=== PATIENT | female | born 1985 | race Caucasian/White ===

== ENCOUNTER 2019-07-12 20:52 | Emergency (ER) | payer BC ==
--- NOTE | 2019-07-12 21:16 | EDM.PDOC ---
ED HPI GENERAL MEDICAL PROBLEM - General Chief Complaint: ENT Problem Stated Complaint: THROAT HURTS Time Seen by Provider: 07/12/19 21:01 Source of Information: Reports: Patient, RN History Limitations: Reports: No Limitations - History of Present Illness INITIAL COMMENTS - FREE TEXT/NARRATIVE: ED with c/o cold symptoms cough, congestion, sore throat past 3-4 days. Tonight , playing "bengali horn" felt more winded so wanted to be seen. No hx asthma. No nausea or vomiting. Throat Pain Score (Numeric/FACES): 4 - Related Data Allergies Allergy/AdvReac Type Severity Reaction Status Date / Time amoxicillin Allergy Rash Verified 07/12/19 21:05 codeine Allergy Stomach Verified 07/12/19 21:05 Upset morphine Allergy Stomach Verified 07/12/19 21:05 Upset Penicillins Allergy Rash Verified 07/12/19 21:05 Home Meds: Home Meds ARIPiprazole [Abilify] 10 mg PO DAILY 07/12/19 [History] busPIRone HCl [busPIRone] 30 mg PO DAILY 07/12/19 [History] ED ROS ENT - Review of Systems Review Of Systems: Comprehensive ROS is negative, except as noted in HPI. ED EXAM, ENT - Physical Exam Exam: See Below Exam Limited By: No Limitations General Appearance: Alert, Mild Distress Eye Exam: Bilateral Eye: EOMI, PERRL Ears: Normal External Exam, Normal TMs Nose: Normal Inspection, Normal Mucousa Mouth/Throat: Normal Inspection, Normal Teeth Head: Atraumatic, Normocephalic Neck: Normal Inspection, Full Range of Motion Respiratory/Chest: No Respiratory Distress, Lungs Clear, Normal Breath Sounds Cardiovascular: Normal Peripheral Pulses GI/Abdominal: Normal Bowel Sounds, Soft, No Organomegaly (Female) Exam: Normal External Exam Back: Full Range of Motion Extremities: Normal Inspection, Normal Range of Motion Neurological: Alert, Oriented, Normal Cognition Skin: Warm, Dry, Intact, Normal Color Course - Vital Signs Last Recorded V/S: Last Vital Signs Temp 98.4 F 07/12/19 21:02 Pulse 96 07/12/19 21:02 Resp 18 07/12/19 21:02 BP 111/43 L 07/12/19 21:02 Pulse Ox 100 07/12/19 21:02 - Orders/Labs/Meds Orders: Active Orders 24 hr Category Date Time Status CULTURE STREP A CONFIRMATION [RM] Stat Lab 07/12/19 20:55 Results STREP SCRN A RAPID W CULT CONF [RM] Stat Lab 07/12/19 20:55 Results Departure - Departure Time of Disposition: 22:36 Disposition: Home, Self-Care 01 Condition: Good Clinical Impression: URI (upper respiratory infection) Qualifiers: URI type: unspecified viral URI Qualified Code(s): J06.9 - Acute upper respiratory infection, unspecified - Discharge Information *PRESCRIPTION DRUG MONITORING PROGRAM REVIEWED*: No *COPY OF PRESCRIPTION DRUG MONITORING REPORT IN PATIENT CHLOE: No Instructions: Upper Respiratory Infection, Adult, [id number] Forms: ED Department Discharge Additional Instructions: supportive care alternate tylenol and ibuprofen for pain/ fever Over counter, cough and could medications per package instructions increase fluids humidification follow up if symptoms worsen Sepsis Event Note - Focused Exam Vital Signs: Vital Signs Temp Pulse Resp BP Pulse Ox 07/12/19 21:02 98.4 F 96 18 111/43 L 100 Date Exam was Performed: 07/13/19 Time Exam was Performed: 04:19 - My Orders Last 24 Hours: My Active Orders 07/12/19 20:55 CULTURE STREP A CONFIRMATION [RM] Stat STREP SCRN A RAPID W CULT CONF [RM] Stat - Assessment/Plan Last 24 Hours: My Active Orders 07/12/19 20:55 CULTURE STREP A CONFIRMATION [RM] Stat STREP SCRN A RAPID W CULT CONF [RM] Stat
== END 2019-07-12 22:44 | disposition home or self-care (01) ==
LOC: DL.ED 20:52
DX: J06.9 Acute upper respiratory infection, unspecified (principal); Z88.0 Allergy status to penicillin; Z88.5 Allergy status to narcotic agent
CPT/HCPCS: 87081; 87430; 87804; 99283

== ENCOUNTER 2020-03-16 01:18 | Emergency (ER) | payer BC ==
[2020-03-16] MEDS ORDERED: Ondansetron 4 MG/2 ML SDV IVPUSH PRN (01:30)
[2020-03-16] MEDS ORDERED: Sodium Chloride 0.9% 10 ML Syringe FLUSH PRN (01:30)
[2020-03-16] MEDS ORDERED: Sodium Chloride 0.9% 1,000 ML IV SCH (01:30)
[2020-03-16] MEDS ORDERED: GI Cocktail Oral Solution 30 ML PO ONE (01:50)
--- NOTE | 2020-03-16 01:52 | EDM.PDOC ---
ED HPI GENERAL MEDICAL PROBLEM - General Chief Complaint: Abdominal Pain Stated Complaint: ABD PAIN Time Seen by Provider: 03/16/20 01:50 Source of Information: Reports: Patient History Limitations: Reports: No Limitations - History of Present Illness INITIAL COMMENTS - FREE TEXT/NARRATIVE: onset epiG pain 11pm, only ate lunch but nothing all day. N&V no diarrhoea. Epigastric Pain Score (Numeric/FACES): 8 - Related Data Allergies Allergy/AdvReac Type Severity Reaction Status Date / Time amoxicillin Allergy Rash Verified 03/16/20 01:29 codeine Allergy Stomach Verified 03/16/20 01:29 Upset morphine Allergy Stomach Verified 03/16/20 01:29 Upset Penicillins Allergy Rash Verified 03/16/20 01:29 Home Meds: Home Meds ARIPiprazole [Abilify] 10 mg PO DAILY 07/12/19 [History] busPIRone HCl [busPIRone] 30 mg PO DAILY 07/12/19 [History] Escitalopram Oxalate 20 mg PO DAILY 03/16/20 [History] Spironolactone [Aldactone] 10 mg PO DAILY 03/16/20 [History] Past Medical History Psychiatric History: Reports: Anxiety, Depression - Past Surgical History GI Surgical History: Reports: Cholecystectomy Musculoskeletal Surgical History: Reports: Other (See Below) Other Musculoskeletal Surgeries/Procedures:: removal of Bunion bilateral feet Social & Family History - Family History Family Medical History: Noncontributory - Tobacco Use Smoking Status *Q: Never Smoker Second Hand Smoke Exposure: No - Caffeine Use Caffeine Use: Reports: None - Recreational Drug Use Recreational Drug Use: No ED ROS GENERAL - Review of Systems Review Of Systems: Comprehensive ROS is negative, except as noted in HPI. ED EXAM, GI/ABD - Physical Exam Exam: See Below Exam Limited By: No Limitations General Appearance: Alert, WD/WN, Mild Distress, Moderate Distress, Other (tearful). No: Active Emesis Ears: Hearing Grossly Normal Throat/Mouth: Normal Voice, No Airway Compromise Head: Atraumatic Neck: Non-Tender, Full Range of Motion Respiratory/Chest: No Respiratory Distress Cardiovascular: Regular Rate, Rhythm GI/Abdominal Exam: Tender, Other (epiG region). No: Guarding, Rigid, Rebound Neurological: Alert, Oriented, Normal Cognition, Normal Gait, No Motor/Sensory Deficits Psychiatric: Tearful Skin Exam: Warm, Dry, Normal Color Lymphatic: No Adenopathy Course - Vital Signs Last Recorded V/S: Last Vital Signs Temp 35.9 C L 03/16/20 01:25 Pulse 89 03/16/20 01:25 Resp 22 H 03/16/20 01:25 BP 107/66 03/16/20 01:25 Pulse Ox 97 03/16/20 01:25 - Orders/Labs/Meds Orders: Active Orders 24 hr Category Date Time Status Peripheral IV Care [RC] . DIRECTED Care 03/16/20 01:31 Active Ondansetron [Zofran] Med 03/16/20 01:30 Active 4 mg IVPUSH Q4H PRN Sodium Chloride 0.9% [Normal Saline] 1,000 ml Med 03/16/20 01:30 Active IV ASDIRECTED Sodium Chloride 0.9% [Saline Flush] Med 03/16/20 01:30 Active 10 ml FLUSH ASDIRECTED PRN Peripheral IV Insertion Adult [OM.PC] Routine Oth 03/16/20 01:30 Ordered Medication Orders Sodium Chloride (Normal Saline) 1,000 mls @ 999 mls/hr IV ASDIRECTED DONALD Last Admin: 03/16/20 01:48 Dose: 999 mls/hr Documented by: KELSEY Ondansetron HCl (Zofran) 4 mg IVPUSH Q4H PRN PRN Reason: Nausea/Vomiting Last Admin: 03/16/20 01:55 Dose: 4 mg Documented by: KELSEY Sodium Chloride (Saline Flush) 10 ml FLUSH ASDIRECTED PRN PRN Reason: Keep Vein Open Last Admin: 03/16/20 01:48 Dose: 10 ml Documented by: KELSEY Labs: Laboratory Tests 03/16/20 03/16/20 03/16/20 Range/Units 01:45 01:45 01:45 WBC 14.7 H (5.0-10.0) 10^3/uL RBC 4.69 (4.2-5.4) 10^6/uL Hgb 13.7 (12.0-16.0) g/dL Hct 40.3 (37.0-47.0) % MCV 85.9 (80-100) fL MCH 29.2 (27.0-34.0) pg MCHC 34.0 (33.0-35.0) g/dL Plt Count 226 (150-450) 10^3/uL Neut % (Auto) 82.3 H (42.2-75.2) % Lymph % (Auto) 13.4 L (20.5-50.1) % [place] % (Auto) 3.8 (2-8) % Eos % (Auto) 0.3 L (1.0-3.0) % Baso % (Auto) 0.2 (0.0-1.0) % Sodium 140 (136-145) mmol/L Potassium 3.9 (3.5-5.1) mmol/L Chloride 102 (98-107) mmol/L Carbon Dioxide 27 (21-32) mmol/L Anion Gap 14.9 H (7-13) mEq/L BUN 13 (7-18) mg/dL Creatinine 1.09 H (0.55-1.02) mg/dL Est Cr Clr Drug Dosing 67.44 mL/min Estimated GFR (MDRD) 57 BUN/Creatinine Ratio 11.9 (No establ ref range) Glucose 142 H (74-99) mg/dL Lactic Acid 2.3 H* (0.4-2.0) mmol/L Calcium 8.7 (8.5-10.1) mg/dL Total Bilirubin 0.6 (0.2-1.0) mg/dL AST 33 (15-37) U/L ALT 68 H (14-59) U/L Alkaline Phosphatase 72 (46-116) U/L Total Protein 7.7 (6.4-8.2) g/dL Albumin 3.7 (3.4-5.0) g/dL Globulin 4.0 Albumin/Globulin Ratio 0.9 Amylase 57 (25-115) U/L Lipase 71 L (73-393) U/L HCG, Qual Negative Urine Color (YELLOW) Urine Appearance (CLEAR) Urine pH (5.0-9.0) Ur Specific [place] (1.005-1.030) Urine Protein (NEGATIVE) Urine Glucose (UA) (NEGATIVE) Urine Ketones (NEGATIVE) Urine Occult Blood (NEGATIVE) Urine Nitrite (NEGATIVE) Urine Bilirubin (NEGATIVE) Urine Urobilinogen (0.2-1.0) mg/dL Ur Leukocyte Esterase (NEGATIVE) Urine RBC /HPF Urine WBC (0-5/HPF) /HPF Ur Epithelial Cells (NOT SEEN) /HPF Amorphous Sediment (NOT SEEN) /HPF Urine Bacteria (0-FEW/HPF) /HPF Urine Mucus (NOT SEEN) /LPF Urine Opiates Screen (NEGATIVE) Ur Oxycodone Screen (NEGATIVE) Urine Methadone Screen (NEGATIVE) Ur Barbiturates Screen (NEGATIVE) U Tricyclic Antidepress (NEGATIVE) Ur Phencyclidine Scrn (NEGATIVE) Ur Amphetamine Screen (NEGATIVE) U Methamphetamines Scrn (NEGATIVE) Urine MDMA Screen (NEGATIVE) U Benzodiazepines Scrn (NEGATIVE) Urine Cocaine Screen (NEGATIVE) U Marijuana (THC) Screen (NEGATIVE) 03/16/20 03/16/20 Range/Units 03:12 03:12 WBC (5.0-10.0) 10^3/uL RBC (4.2-5.4) 10^6/uL Hgb (12.0-16.0) g/dL Hct (37.0-47.0) % MCV (80-100) fL MCH (27.0-34.0) pg MCHC (33.0-35.0) g/dL Plt Count (150-450) 10^3/uL Neut % (Auto) (42.2-75.2) % Lymph % (Auto) (20.5-50.1) % [place] % (Auto) (2-8) % Eos % (Auto) (1.0-3.0) % Baso % (Auto) (0.0-1.0) % Sodium (136-145) mmol/L Potassium (3.5-5.1) mmol/L Chloride (98-107) mmol/L Carbon Dioxide (21-32) mmol/L Anion Gap (7-13) mEq/L BUN (7-18) mg/dL Creatinine (0.55-1.02) mg/dL Est Cr Clr Drug Dosing mL/min Estimated GFR (MDRD) BUN/Creatinine Ratio (No establ ref range) Glucose (74-99) mg/dL Lactic Acid (0.4-2.0) mmol/L Calcium (8.5-10.1) mg/dL Total Bilirubin (0.2-1.0) mg/dL AST (15-37) U/L ALT (14-59) U/L Alkaline Phosphatase (46-116) U/L Total Protein (6.4-8.2) g/dL Albumin (3.4-5.0) g/dL Globulin Albumin/Globulin Ratio Amylase (25-115) U/L Lipase (73-393) U/L HCG, Qual Urine Color Dark yellow (YELLOW) Urine Appearance Slightly cloudy (CLEAR) Urine pH 7.5 (5.0-9.0) Ur Specific [place] 1.025 (1.005-1.030) Urine Protein 30 H (NEGATIVE) Urine Glucose (UA) Negative (NEGATIVE) Urine Ketones 15 H (NEGATIVE) Urine Occult Blood Moderate H (NEGATIVE) Urine Nitrite Negative (NEGATIVE) Urine Bilirubin Negative (NEGATIVE) Urine Urobilinogen 0.2 (0.2-1.0) mg/dL Ur Leukocyte Esterase Moderate H (NEGATIVE) Urine RBC 50-75 H /HPF Urine WBC 40-50 H (0-5/HPF) /HPF Ur Epithelial Cells Few (NOT SEEN) /HPF Amorphous Sediment Few (NOT SEEN) /HPF Urine Bacteria Few (0-FEW/HPF) /HPF Urine Mucus Few H (NOT SEEN) /LPF Urine Opiates Screen Negative (NEGATIVE) Ur Oxycodone Screen Negative (NEGATIVE) Urine Methadone Screen Negative (NEGATIVE) Ur Barbiturates Screen Negative (NEGATIVE) U Tricyclic Antidepress Negative (NEGATIVE) Ur Phencyclidine Scrn Negative (NEGATIVE) Ur Amphetamine Screen Negative (NEGATIVE) U Methamphetamines Scrn Negative (NEGATIVE) Urine MDMA Screen Negative (NEGATIVE) U Benzodiazepines Scrn Negative (NEGATIVE) Urine Cocaine Screen Negative (NEGATIVE) U Marijuana (THC) Screen Negative (NEGATIVE) Meds: Medications Generic Name Dose Route Start Last Admin Trade Name Freq PRN Reason Stop Dose Admin Sodium Chloride 1,000 mls @ 999 mls/hr 03/16/20 01:30 03/16/20 01:48 Normal Saline IV 999 mls/hr ASDIRECTED DONALD Administration Ondansetron HCl 4 mg 03/16/20 01:30 03/16/20 01:55 Zofran IVPUSH 4 mg Q4H PRN Administration Nausea/Vomiting Sodium Chloride 10 ml 03/16/20 01:30 03/16/20 01:48 Saline Flush FLUSH 10 ml ASDIRECTED PRN Administration Keep Vein Open Discontinued Medications Generic Name Dose Route Start Last Admin Trade Name Freq PRN Reason Stop Dose Admin Al Hydroxide/Mg Hydroxide 30 ml 03/16/20 01:50 03/16/20 02:51 Gi Cocktail PO 03/16/20 01:51 Not Given ONETIME ONE Iopamidol 100 ml 03/16/20 02:43 03/16/20 03:34 Isovue-300 (61%) IVPUSH 03/16/20 02:44 100 ml ONETIME ONE Administration Ketorolac Tromethamine 30 mg 03/16/20 02:43 03/16/20 03:01 Toradol IVPUSH 03/16/20 02:44 30 mg ONETIME ONE Administration Metoclopramide HCl 10 mg 03/16/20 02:54 03/16/20 03:00 Reglan IVPUSH 03/16/20 02:55 10 mg ONETIME ONE Administration Nitrofurantoin Macrocrystals 100 mg 03/16/20 04:15 Macrobid PO 03/16/20 04:16 ONETIME ONE Phenazopyridine HCl 95 mg 03/16/20 04:15 Urinary Pain Relief PO 03/16/20 04:16 ONETIME ONE - Re-Assessments/Exams Free Text/Narrative Re-Assessment/Exam: 03/16/20 04:18 results discussed wit pt who states she has been having for UTI Sx also. Departure - Departure Time of Disposition: 04:18 Disposition: Home, Self-Care 01 Condition: Good Clinical Impression: Colitis UTI (urinary tract infection) Qualifiers: Urinary tract infection type: acute cystitis Hematuria presence: with hematuria Qualified Code(s): N30.01 - Acute cystitis with hematuria - Discharge Information Instructions: Urinary Tract Infection, Adult, [id number] Forms: ED Department Discharge Additional Instructions: 1) drink lots of liquids 2) soft diet 3) see clinic for further evaluation. rx given; macrobid 100mg bid x 20 pyridium 100mg tid prn x 12 Sepsis Event Note (ED) - Evaluation Sepsis Screening Result: No Definite Risk - Focused Exam Vital Signs: Vital Signs Temp Pulse Resp BP Pulse Ox 03/16/20 01:25 35.9 C L 89 22 H 107/66 97 - My Orders Last 24 Hours: My Active Orders 03/16/20 01:30 Ondansetron [Zofran] 4 mg IVPUSH Q4H PRN Sodium Chloride 0.9% [Normal Saline] 1,000 ml IV ASDIRECTED Sodium Chloride 0.9% [Saline Flush] 10 ml FLUSH ASDIRECTED PRN Peripheral IV Insertion Adult [OM.PC] Routine 03/16/20 01:31 Peripheral IV Care [RC] . DIRECTED - Assessment/Plan Last 24 Hours: My Active Orders 03/16/20 01:30 Ondansetron [Zofran] 4 mg IVPUSH Q4H PRN Sodium Chloride 0.9% [Normal Saline] 1,000 ml IV ASDIRECTED Sodium Chloride 0.9% [Saline Flush] 10 ml FLUSH ASDIRECTED PRN Peripheral IV Insertion Adult [OM.PC] Routine 03/16/20 01:31 Peripheral IV Care [RC] . DIRECTED
[2020-03-16 02:26] LABS: ANION GAP 14.9 mEq/L (7-13); CHLORIDE,CL 102 mmol/L (98-107); SODIUM,NA 140 mmol/L (136-145)
[2020-03-16] MEDS ORDERED: Ketorolac 30 MG/ML SDV IVPUSH ONE (02:43)
[2020-03-16] MEDS ORDERED: Iopamidol 612 MG/ML 100 ML Bottle IVPUSH ONE (02:43)
[2020-03-16] MEDS ORDERED: Metoclopramide 10 MG/2 ML SDV IVPUSH ONE (02:54)
--- NOTE | 2020-03-16 04:01 | CT ---
PROCEDURE INFORMATION: Exam: CT Abdomen And Pelvis With Contrast Exam date and time: 03/16/2020 3:12 AM Age: 34 years old Clinical indication: Abdominal pain; Additional info: Pain wbc 14,200 TECHNIQUE: Imaging protocol: Computed tomography of the abdomen and pelvis with intravenous contrast. Radiation optimization: All CT scans at this facility use at least one of these dose optimization techniques: automated exposure control; mA and/or kV adjustment per patient size (includes targeted exams where dose is matched to clinical indication); or iterative reconstruction. Contrast material: ISOVUE; Contrast volume: 100 ml; Contrast route: INTRAVENOUS (IV); COMPARISON: No relevant prior studies available. FINDINGS: Liver: Hepatomegaly, hepatic steatosis. Gallbladder and bile ducts: Cholecystectomy. Pancreas: Normal. No ductal dilation. Spleen: Normal. No splenomegaly. Adrenals: Normal. No mass. Kidneys and ureters: Normal. No hydronephrosis. Stomach and bowel: Possible wall thickening of the RIGHT and proximal transverse colon. Appendix: No evidence of appendicitis. Intraperitoneal space: Unremarkable. No free air. No significant fluid collection. Vasculature: Unremarkable. No abdominal aortic aneurysm. Lymph nodes: Unremarkable. No enlarged lymph nodes. Bladder: Unremarkable as visualized. Reproductive: Intrauterine device in expected location. Bones/joints: Unremarkable. No acute fracture. Soft tissues: There is a small fat-containing umbilical hernia. IMPRESSION: 1. Possible wall thickening of the RIGHT and proximal transverse colon. Finding may be secondary to pseudo-wall thickening / under distention versus mild colitis. 2. Hepatomegaly, hepatic steatosis.
[2020-03-16] MEDS ORDERED: Phenazopyridine 95 MG Tab PO ONE (04:15)
[2020-03-16] MEDS ORDERED: Nitrofurantoin Monohydrate/Macrocrystalline 100 MG Cap PO ONE (04:15)
== END 2020-03-16 06:45 | disposition home or self-care (01) ==
LOC: DL.ED 01:18
DX: K52.9 Noninfective gastroenteritis and colitis, unspecified (principal); N30.01 Acute cystitis with hematuria; F41.9 Anxiety disorder, unspecified; F32.9 Major depressive disorder, single episode, unspecified; Z88.1 Allergy status to other antibiotic agents; Z88.5 Allergy status to narcotic agent; Z88.0 Allergy status to penicillin; Z79.899 Other long term (current) drug therapy
CPT/HCPCS: 36415; 74177; 80053; 80305; 81001; 82150; 83605; 83690; 84703; 85025; 96361; 96374; 96375; 99284; A9270; J1885; J2405; J2765; J7030; Q9967

== ENCOUNTER 2020-03-16 06:52 | Inpatient (IN) | payer BC ==
--- NOTE | 2020-03-16 06:59 | EDM.PDOC ---
ED HPI GENERAL MEDICAL PROBLEM - General Stated Complaint: Throwing up Time Seen by Provider: 03/16/20 06:59 Source of Information: Reports: Patient, RN, RN Notes Reviewed History Limitations: Reports: No Limitations - History of Present Illness INITIAL COMMENTS - FREE TEXT/NARRATIVE: Patient presents to ER with abdominal pain and vomiting. Patient was just discharged a few minutes ago, as being discharged she signed and again. Patient was vomiting in the waiting room, complaining of abdominal pain. Lab work done a couple hours ago shows white blood count 14, lactic 2.3. Patient diagnosed with a UTI, as well as colitis per abdominal CT. Onset: Today Abdominal Pain Score (Numeric/FACES): 5 - Related Data Allergies Allergy/AdvReac Type Severity Reaction Status Date / Time amoxicillin Allergy Rash Verified 03/16/20 01:29 codeine Allergy Stomach Verified 03/16/20 01:29 Upset morphine Allergy Stomach Verified 03/16/20 01:29 Upset Penicillins Allergy Rash Verified 03/16/20 01:29 Home Meds: Home Meds ARIPiprazole [Abilify] 10 mg PO DAILY 07/12/19 [History] busPIRone HCl [busPIRone] 30 mg PO DAILY 07/12/19 [History] Escitalopram Oxalate 20 mg PO DAILY 03/16/20 [History] Spironolactone [Aldactone] 10 mg PO DAILY 03/16/20 [History] Past Medical History - Past Surgical History GI Surgical History: Reports: Cholecystectomy Musculoskeletal Surgical History: Reports: Other (See Below) Other Musculoskeletal Surgeries/Procedures:: removal of Bunion bilateral feet Social & Family History - Family History Family Medical History: Noncontributory - Caffeine Use Caffeine Use: Reports: Soda ED ROS GENERAL - Review of Systems Review Of Systems: Comprehensive ROS is negative, except as noted in HPI. ED EXAM, GI/ABD - Physical Exam Exam: See Below Exam Limited By: No Limitations General Appearance: Alert, WD/WN, Mild Distress Eyes: Bilateral: Normal Appearance, EOMI Ears: Normal External Exam, Hearing Grossly Normal Nose: Normal Inspection Throat/Mouth: Normal Inspection, Normal Voice, No Airway Compromise Head: Atraumatic, Normocephalic Neck: Normal Inspection, Supple, Non-Tender, Full Range of Motion Respiratory/Chest: No Respiratory Distress, Lungs Clear, Normal Breath Sounds, No Accessory Muscle Use, Chest Non-Tender Cardiovascular: Normal Peripheral Pulses, Regular Rate, Rhythm, No Edema, No Gallop, No JVD, No Murmur, No Rub GI/Abdominal Exam: Normal Bowel Sounds, Soft, Tender (diffuse) (Female) Exam: Deferred Rectal (Female) Exam: Deferred Back Exam: Normal Inspection, Full Range of Motion, NT Extremities: Normal Inspection, Normal Range of Motion, Non-Tender, Normal Capillary Refill, No Pedal Edema Neurological: Alert, Oriented, CN II-XII Intact, Normal Cognition, Normal Gait, Normal Reflexes, No Motor/Sensory Deficits Psychiatric: Normal Affect, Normal Mood, Flat Affect Skin Exam: Warm, Dry, Intact, No Rash, Pallor Lymphatic: No Adenopathy Course - Vital Signs Last Recorded V/S: Last Vital Signs Temp 97.5 F 03/16/20 07:07 Pulse 88 03/16/20 07:07 Resp 16 03/16/20 07:07 BP 118/69 03/16/20 07:07 Pulse Ox 98 03/16/20 07:07 - Re-Assessments/Exams Free Text/Narrative Re-Assessment/Exam: 03/16/20 07:14 Discussed patient case with Dr. Ramirez who agreed to accept the patient for inpatient admission. Departure - Departure Time of Disposition: 07:14 Disposition: Admitted As Inpatient 65 Condition: Fair Clinical Impression: Colitis UTI (urinary tract infection) Qualifiers: Urinary tract infection type: acute cystitis Hematuria presence: with hematuria Qualified Code(s): N30.01 - Acute cystitis with hematuria - Discharge Information *PRESCRIPTION DRUG MONITORING PROGRAM REVIEWED*: No *COPY OF PRESCRIPTION DRUG MONITORING REPORT IN PATIENT CHLOE: No Forms: ED Department Discharge Sepsis Event Note (ED) - Focused Exam Vital Signs: Vital Signs Temp Pulse Resp BP Pulse Ox 03/16/20 07:07 97.5 F 88 16 118/69 98
[2020-03-16] MEDS ORDERED: Ondansetron 4 MG/2 ML SDV IV ONE (07:25)
[2020-03-16] MEDS ORDERED: Sodium Chloride 0.9% 1,000 ML IV ONE (07:25)
[2020-03-16] MEDS: Metoclopramide 10 MG/2 ML SDV IVPUSH PRN ×4 (08:46→21:27)
[2020-03-16] MEDS: LORazepam 2 MG/ML SDV IVPUSH PRN (08:49)
[2020-03-16] MEDS: metroNIDAZOLE/Normal Saline 500 MG in Premix Bag 100 BAG IV SCH ×2 (09:05→13:56)
[2020-03-16] MEDS: Enoxaparin 30 MG/0.3 ML Syringe SUBCUT SCH (10:18)
[2020-03-16] MEDS: Ciprofloxacin in D5W 400 MG in Premix Bag 1 BAG IV SCH ×6 (10:18→23:07)
[2020-03-16] MEDS: Pantoprazole 40 MG Vial IVPUSH SCH ×2 (10:18→22:49)
--- NOTE | 2020-03-16 11:44 | HP ---
CHIEF COMPLAINT: Abdominal pain, nausea, and vomiting. HISTORY OF PRESENT ILLNESS: The patient is a 34-year-old female who was admitted through the emergency room because the patient has been complaining of abdominal pain and vomiting that started at 11 o'clock last night. The patient was seen by Dr. White in the emergency room and workup was done, and a CAT scan showed some signs of colitis, otherwise unremarkable. She was given some IV fluids and Zofran and Reglan and subsequently discharged, but even before going home, she decided to come back to the emergency room because she is still throwing up and she is still having abdominal pain. The patient denies though any diarrhea. Denies any chest pain, shortness of breath. She does complain of some mild flank pain and also some fever and chills. Because of the above, she was then admitted for further evaluation and management. PAST MEDICAL HISTORY: Remarkable for anxiety, depression, and cholecystectomy. FAMILY HISTORY: Noncontributory. SOCIAL HISTORY: The patient is a nonsmoker. No illicit drug use. REVIEW OF SYSTEMS: As in HPI. The rest of the review of systems is negative. HOME MEDICATIONS: Abilify, buspirone, escitalopram, and spironolactone. ALLERGIES: Amoxicillin, codeine, morphine, penicillin, and minocycline. PHYSICAL EXAMINATION: General: The patient is alert, oriented, not in any acute distress. Vital Signs: Blood pressure is 118/69, pulse of 88, respirations 16, temperature of 97.5, and saturation is 98%. SHEENT: Normocephalic. There are pink palpebral conjunctivae. Sclerae anicteric. No JVD. No lymphadenopathy. Heart: Regular rate and rhythm. Normal S1 and S2. No gallops. No rubs. Lungs: Equal bilaterally. No crackles, no wheezing. Abdomen: Obese, soft. There is generalized direct tenderness, but no rebound, and bowel sounds hypoactive. Extremities: Negative for any significant pedal edema. No calf tenderness. LABORATORY DATA: Lab workup; this was done during the initial ER visit on 03/16/2020 at 3:59 a.m. CBC: WBC is 14.7, hemoglobin is 13.7, hematocrit is 40.3, platelet is 226, and neutrophils 82.3. Comp panel remarkable for anion gap of 14.9, creatinine of 1.09, glucose is 142, ALT of 68. Lactic acid is 2.3. Urinalysis is remarkable for 30 of urinary protein, 15 ketones, moderate occult blood with moderate leukocyte esterase with 50 to 75 rbc's and 40 to 50 wbc's. Urine drug screen is negative; and CAT scan of the abdomen and pelvis showed possible wall thickening of the right and proximal transverse colon, possible mild colitis, and there is hepatomegaly and hepatic steatosis. ADMITTING DIAGNOSES: 1. Nausea and vomiting and abdominal pain secondary to colitis. 2. Urinary tract infection. 3. Anxiety and depression. 4. Fatty liver. TREATMENT PLAN: The patient is going to be admitted to General Medicine Floor. She will be empirically started on IV fluids and IV antibiotics and she will be kept n.p.o. She will be given Reglan for symptomatic relief of her nausea and vomiting, and blood cultures and urine cultures will be ordered. The rest of the management as necessary. The patient is a full code. [facility] /[id number]
[2020-03-16] MEDS: Acetaminophen 325 MG Tab PO PRN ×2 (13:17→17:20)
[2020-03-16] MEDS ORDERED: ARIPIPRAZOLE 10 MG PO SCH (21:00)
[2020-03-16] MEDS: Spironolactone 25 MG Tab PO SCH (22:48)
[2020-03-16] MEDS: Escitalopram 10 MG Tab PO SCH (22:49)
[2020-03-16] MEDS: busPIRone 5 MG Tab PO SCH (22:49)
[2020-03-17] MEDS: metroNIDAZOLE/Normal Saline 500 MG in Premix Bag 100 BAG IV SCH ×4 (01:09→21:56)
[2020-03-17 07:10] LABS: ANION GAP 10.4 mEq/L (7-13); CHLORIDE,CL 104 mmol/L (98-107); SODIUM,NA 140 mmol/L (136-145)
[2020-03-17] MEDS: Metoclopramide 10 MG/2 ML SDV IVPUSH PRN ×3 (08:30→17:37)
[2020-03-17] MEDS ORDERED: Potassium Chloride 10 MEQ Tab.ER PO ONE (08:40)
[2020-03-17] MEDS: Pantoprazole 40 MG Vial IVPUSH SCH ×2 (10:03→20:36)
[2020-03-17] MEDS: Ciprofloxacin in D5W 400 MG in Premix Bag 1 BAG IV SCH ×4 (10:04→20:37)
[2020-03-17] MEDS: Enoxaparin 30 MG/0.3 ML Syringe SUBCUT SCH (10:04)
--- NOTE | 2020-03-17 11:30 | PN ---
DATE: 03/17/2020 SUBJECTIVE: The patient this morning is feeling slightly better, although still gets nauseated when she moves around, but she mentioned that she is ready to advance her diet to regular diet. She denies any significant abdominal pain. Denies any chest pain, shortness of breath, nor any other complaints. Preliminary report of the urine culture is showing more than 100,000 colonies of gram-negative rods. ID to follow. LABORATORY DATA: Lab workup this morning. CBC: WBC is 10.8, hemoglobin is 12.5, hematocrit is 37.7, platelets are 197. Chem-6: Potassium is 3.4. The rest of the panel unremarkable. OBJECTIVE: Vital Signs: Blood pressure is 98/74, pulse of 82, respirations of 18, temperature of 99. SHEENT: Normocephalic. There are pink palpebral conjunctivae. Sclerae are anicteric. No JVD. No lymphadenopathy. Heart: Regular rate and rhythm. Normal S1 and S2. No gallops. No rubs. Lungs: Equal bilaterally. No crackles, no wheezing. Abdomen: Soft. There is still some mild direct tenderness diffusely, but no rebound. Bowel sounds positive. Extremities: Negative for any significant pedal edema. No calf tenderness. MEDICATIONS: Reviewed. PLAN: We will continue with her present management, and I am also going to advance her diet to regular. We will also give her potassium p.o. x1 because of the slightly low potassium today. [facility] /[id number]
[2020-03-17] MEDS: LORazepam 2 MG/ML SDV IVPUSH PRN (17:37)
[2020-03-17] MEDS: Spironolactone 25 MG Tab PO SCH (21:12)
[2020-03-17] MEDS: busPIRone 5 MG Tab PO SCH (21:13)
[2020-03-17] MEDS: Escitalopram 10 MG Tab PO SCH (21:13)
[2020-03-18] MEDS: Metoclopramide 10 MG/2 ML SDV IVPUSH PRN ×2 (03:26→08:11)
[2020-03-18] MEDS: metroNIDAZOLE/Normal Saline 500 MG in Premix Bag 100 BAG IV SCH ×2 (05:55→14:35)
[2020-03-18] MEDS: Pantoprazole 40 MG Vial IVPUSH SCH ×2 (08:11→20:50)
[2020-03-18] MEDS: Enoxaparin 30 MG/0.3 ML Syringe SUBCUT SCH (09:08)
[2020-03-18] MEDS: Ciprofloxacin in D5W 400 MG in Premix Bag 1 BAG IV SCH ×6 (10:47→21:43)
--- NOTE | 2020-03-18 11:16 | PN ---
DATE: 03/18/2020 SUBJECTIVE: The patient is slowly improving and abdominal pain is also improving, but she is still complaining of some pain when she eats, but Reglan seems to be helping. Otherwise, no chest pain, shortness of breath, fever, chills, nor any other complaints, and the patient is tolerating her oral intake. OBJECTIVE: Vital Signs: Blood pressure is 106/73, pulse of 80, respirations of 20, temperature of 98.1, saturation is 96%. Heart: Regular rate and rhythm. Normal S1 and S2. No gallops. No rubs. Lungs: Equal bilaterally. No crackles. No wheezing. Abdomen: Soft, nontender. Bowel sounds positive. Extremities: Negative for any significant pedal edema. No calf tenderness. MEDICATIONS: Reviewed. PLAN: We will continue with her present management. ADDENDUM: Urine culture is showing E coli, susceptible to ciprofloxacin. [facility] /[id number]
[2020-03-18] MEDS: Spironolactone 25 MG Tab PO SCH (20:59)
[2020-03-18] MEDS: busPIRone 5 MG Tab PO SCH (20:59)
[2020-03-18] MEDS: Escitalopram 10 MG Tab PO SCH (20:59)
[2020-03-18] MEDS: metroNIDAZOLE 250 MG Tab PO SCH (21:37)
[2020-03-18] MEDS: Ciprofloxacin 500 MG Tab PO SCH (21:37)
[2020-03-19] MEDS: metroNIDAZOLE 250 MG Tab PO SCH (05:44)
[2020-03-19] MEDS ORDERED: Ciprofloxacin 500 MG Tab PO SCH (09:00)
[2020-03-19] MEDS ORDERED: Pantoprazole 40 MG Tab.CR PO SCH (09:00)
[2020-03-19] MEDS: Enoxaparin 30 MG/0.3 ML Syringe SUBCUT SCH (09:26)
[2020-03-19] MEDS: Ciprofloxacin 500 MG Tab PO SCH (09:27)
--- NOTE | 2020-03-19 11:00 | PN ---
DATE: 03/19/2020 SUBJECTIVE: The patient continues to do well, and the patient's IV site got infiltrated last night. Her Protonix, Cipro, and Flagyl were switched to oral. This morning she took the Flagyl on an empty stomach and she had an upset stomach, but I have discussed with the patient that this is not most likely allergy, and this is because she took it on an empty stomach. Otherwise, she denies any significant ongoing complaints. She had some good bowel movement. She denies any dysuria, fever, chills, chest pain, shortness of breath, nor any other complaints. OBJECTIVE: Vital Signs: Blood pressure is 119/80, pulse 79, respirations 20, and temperature of 98.1. Heart: Regular rate and rhythm. Normal S1 and S2. No gallops. No rubs. Lungs: Clear. No crackles, no wheezing. Abdomen: Moderately obese but soft, nontender. Bowel sounds positive. Extremities: Negative for any pedal edema. No calf tenderness. PLAN: We will discharge the patient home today. We will continue with oral Flagyl, Cipro, and Protonix for the next 1 week and we will resume her home medications. She is going to follow up with her primary care physician in 7 to 10 days and also to discuss possible colonoscopy down the road. [facility] /[id number]
--- NOTE | 2020-03-19 12:27 | DISCH ---
FINAL DIAGNOSES: 1. Nausea, vomiting, and abdominal pain secondary to colitis. 2. Urinary tract infection with Escherichia coli. 3. Anxiety and depression. 4. Obesity. 5. Fatty liver. BRIEF HISTORY OF PRESENT ILLNESS: Please see H and P, pertinent lab, x-ray, and other tests on admission. See H and P. HOSPITAL COURSE: The patient was admitted to General Medicine floor. She was started on IV fluids and IV antibiotics with Flagyl and Cipro and she was also given Reglan for nausea and vomiting. Blood cultures came back negative but urine cultures came back positive for E. coli susceptible to most antibiotics including Cipro. The patient slowly improved and her diet was slowly advanced and she tolerated it well. She had some good bowel movement and she was subsequently discharged. CONDITION ON DISCHARGE: Improved. DISCHARGE INSTRUCTION: We will continue with her Protonix, Flagyl, and Cipro for the next 1 week. We will resume her home medication and she is going to follow up with her primary care provider in 7 to 10 days and also to discuss colonoscopy as an outpatient basis. [facility] /[id number]
== END 2020-03-19 12:00 | disposition home or self-care (01) | DRG 249 ==
LOC: DL.ED 06:52 → DL.MS 07:15
PROVIDERS: ADMIT Internal Medicine; ATTEND Internal Medicine
DX: K52.9 Noninfective gastroenteritis and colitis, unspecified (principal); N39.0 Urinary tract infection, site not specified; B96.20 Unspecified Escherichia coli [E. coli] as the cause of diseases classified elsewhere; F41.9 Anxiety disorder, unspecified; F32.9 Major depressive disorder, single episode, unspecified; K76.0 Fatty (change of) liver, not elsewhere classified; E66.9 Obesity, unspecified; Z68.34 Body mass index [BMI] 34.0-34.9, adult; Z90.49 Acquired absence of other specified parts of digestive tract
CPT/HCPCS: 36415; 80053; 83605; 85025; 87040; 87086; 87088; 87186; 96361; 96374; 99284-25; A9270-GY; C9113; J0744; J1650; J2060; J2405; J2765; J3490; J7030

== ENCOUNTER 2020-12-11 03:04 | Emergency (ER) | payer BC ==
[2020-12-11] MEDS ORDERED: Ondansetron 4 MG Tab.DIS PO ONE (03:05)
[2020-12-11] MEDS ORDERED: Lactated Ringers 1,000 ML IV ONE (03:24)
[2020-12-11] MEDS ORDERED: Ondansetron 4 MG/2 ML SDV IV ONE ×2 (03:25→04:57)
--- NOTE | 2020-12-11 03:41 | EDM.PDOC ---
ED HPI GENERAL MEDICAL PROBLEM <Tanner Reeder - Last Filed: 12/11/20 08:01> - General Source of Information: Reports: Patient, RN, RN Notes Reviewed History Limitations: Reports: No Limitations - History of Present Illness Onset: Sudden upper abd. cramping. Pain Score (Numeric/FACES): 7 <Skyla Reyes - Last Filed: 12/16/20 10:18> - General Chief Complaint: Head Injury Stated Complaint: HIT HEAD LAST NIGHT, VOMITING Time Seen by Provider: 12/11/20 03:41 - History of Present Illness INITIAL COMMENTS - FREE TEXT/NARRATIVE: Patient is a 35-year-old female who presents to ER with complaint of headache, nausea, vomiting. Patient states she hit her head on a wall on Friday at approximately 10 AM. She states she has had some decreased appetite, headache, light sensitivity, vomiting. Patient has had abnormal stools recently, diagnosed with IBS, GERD, recently had a colonoscopy. Has been using fiber to regulate her stools. Patient states she has had some feelings of feeling very warm since yesterday. Unsure of any fever, denies any chills. Denies chest pains or shortness of breath. Patient states she has been hospitalized several times in the past for cyclical vomiting which usually presents with a UTI and colitis. Patient reports frequent UTIs. Is currently taking Macrobid but has been unable to take it at regularly scheduled times due to the nausea and vomiting. (Skyla Reyes) - Related Data Allergies Allergy/AdvReac Type Severity Reaction Status Date / Time amoxicillin Allergy Rash Verified 12/11/20 03:24 codeine Allergy Stomach Verified 12/11/20 03:24 Upset minocycline Allergy Rash Verified 12/11/20 03:24 morphine Allergy Stomach Verified 12/11/20 03:24 Upset Penicillins Allergy Rash Verified 12/11/20 03:24 Home Meds: Home Meds ARIPiprazole [Aripiprazole] 5 mg PO BEDTIME 03/16/20 [History] Cyclobenzaprine HCl 10 mg PO TID PRN 03/16/20 [History] Escitalopram Oxalate 20 mg PO BEDTIME 03/16/20 [History] Spironolactone [Aldactone] 100 mg PO BEDTIME 03/16/20 [History] busPIRone [Buspar] 5 mg PO BID 03/16/20 [History] Ciprofloxacin [Ciprofloxacin HCl] 500 mg PO BID 5 Days #10 tablet 03/19/20 [Rx] Metoclopramide [Reglan] 5 mg PO Q6H PRN #15 tab 03/19/20 [Rx] Pantoprazole [ProTONIX] 40 mg PO DAILY 7 Days #7 tab.cr 03/19/20 [Rx] metroNIDAZOLE 500 mg PO Q8H 5 Days #15 tablet 03/19/20 [Rx] Past Medical History HEENT History: Reports: Impaired Vision Gastrointestinal History: Reports: Cholelithiasis Genitourinary History: Reports: UTI, Recurrent Musculoskeletal History: Reports: None Psychiatric History: Reports: Anxiety, Depression Endocrine/Metabolic History: Reports: Obesity/BMI 30+ - Infectious Disease History Infectious Disease History: Reports: Chicken Pox - Past Surgical History HEENT Surgical History: Reports: None GI Surgical History: Reports: Cholecystectomy Female Surgical History: Reports: None Endocrine Surgical History: Reports: None Musculoskeletal Surgical History: Reports: Other (See Below) Other Musculoskeletal Surgeries/Procedures:: removal of Bunion bilateral feet <Skyla Reyes - Last Filed: 12/16/20 10:18> Social & Family History - Family History Family Medical History: No Pertinent Family History - Tobacco Use Tobacco Use Status *Q: Unknown Ever Used Tobacco - Caffeine Use Caffeine Use: Reports: Soda <Skyla Reyes - Last Filed: 12/16/20 10:18> ED ROS GENERAL - Review of Systems Review Of Systems: Comprehensive ROS is negative, except as noted in HPI. <Skyla Reyes - Last Filed: 12/16/20 10:18> ED EXAM, HEAD INJURY - Physical Exam Exam: See Below Exam Limited By: No Limitations General Appearance: Alert, WD/WN, Mild Distress Head: Atraumatic, Normocephalic Nexus Criteria: No: Posterior, Midline Cervical Tenderness, Evidence of Intoxication, Altered Level of Consciousness, Focal Neurological Deficit, Painful Distraction Injuries Eyes: Bilateral Eye: EOMI, Normal Inspection, PERRL (5 brisk) Ears: Normal External Exam, Normal Canal, Hearing Grossly Normal, Normal TMs Nose: Normal Inspection, Normal Mucousa, No Blood Throat/Mouth: Normal Inspection, Normal Lips, Normal Teeth, Normal Gums, Normal Oropharynx, Normal Voice, No Airway Compromise Neck: Non-Tender, Full Range of Motion, Normal Alignment, Normal Inspection Respiratory: No Respiratory Distress, Lungs Clear, Normal Breath Sounds, No Accessory Muscle Use, Chest Non-Tender Cardiovascular: Normal Peripheral Pulses, Regular Rate, Rhythm, No Edema, No Gallop, No JVD, No Murmur, No Rub GI/Abdominal Exam: Normal Bowel Sounds, Soft, Non-Tender (Female) Exam: Deferred Rectal (Female) Exam: Deferred Back Exam: Full Range of Motion, Normal Inspection, NT Extremities: Normal Inspection, Normal Range of Motion, Non-Tender, No Pedal Edema, Normal Capillary Refill Neurologic: cargo inspector II-XII nml As Tested, No Motor/Sensory Deficits, Alert, Normal Mood/Affect, Oriented x 3 Skin: Normal Color, Warm/Dry - Gracy Coma Score Best Eye Response ([place]): (4) Open Spontaneously Best Verbal Response (Gracy): (5) Oriented Best Motor Response (Gracy): (6) Obeys Commands <Skyla Reyes - Last Filed: 12/16/20 10:18> Course <Tanner Reeder - Last Filed: 12/11/20 08:01> <Skyla Reyes - Last Filed: 12/16/20 10:18> - Vital Signs Last Recorded V/S: Last Vital Signs Temp 98 F 12/11/20 05:11 Pulse 77 12/11/20 05:11 Resp 16 12/11/20 05:11 BP 111/67 12/11/20 05:11 Pulse Ox 100 12/11/20 05:11 - Orders/Labs/Meds Labs: Laboratory Tests 12/11/20 12/11/20 12/11/20 Range/Units 03:34 03:34 03:50 WBC 15.9 H (5.0-10.0) 10^3/uL RBC 5.19 (4.2-5.4) 10^6/uL Hgb 15.2 D (12.0-16.0) g/dL Hct 44.4 (37.0-47.0) % MCV 85.5 (80-100) fL MCH 29.3 (27.0-34.0) pg MCHC 34.2 (33.0-35.0) g/dL Plt Count 262 (150-450) 10^3/uL Neut % (Auto) 72.9 (42.2-75.2) % Lymph % (Auto) 22.6 (20.5-50.1) % Barron % (Auto) 3.7 (2-8) % Eos % (Auto) 0.5 L (1.0-3.0) % Baso % (Auto) 0.3 (0.0-1.0) % PT (9.0-12.0) SEC INR (0.9-1.2) Sodium (136-145) mmol/L Potassium (3.5-5.1) mmol/L Chloride (98-107) mmol/L Carbon Dioxide (21-32) mmol/L Anion Gap (7-13) mEq/L BUN (7-18) mg/dL Creatinine (0.55-1.02) mg/dL Est Cr Clr Drug Dosing mL/min Estimated GFR (MDRD) BUN/Creatinine Ratio (No establ ref range) Glucose (70-99) mg/dL Calcium (8.5-10.1) mg/dL Total Bilirubin (0.2-1.0) mg/dL AST (15-37) U/L ALT (14-59) U/L Alkaline Phosphatase (46-116) U/L Total Protein (6.4-8.2) g/dL Albumin (3.4-5.0) g/dL Globulin Albumin/Globulin Ratio Amylase (25-115) U/L Lipase (73-393) U/L Urine Color Yellow (YELLOW) Urine Appearance Slightly cloudy (CLEAR) Urine pH 7.0 (5.0-9.0) Ur Specific [place] >= 1.030 (1.005-1.030) Urine Protein Negative (NEGATIVE) Urine Glucose (UA) Negative (NEGATIVE) Urine Ketones 15 H (NEGATIVE) Urine Occult Blood Small H (NEGATIVE) Urine Nitrite Negative (NEGATIVE) Urine Bilirubin Negative (NEGATIVE) Urine Urobilinogen 0.2 (0.2-1.0) mg/dL Ur Leukocyte Esterase Trace H (NEGATIVE) Urine RBC 5-10 H /HPF Urine WBC 10-20 H (0-5/HPF) /HPF Ur Epithelial Cells Many H (NOT SEEN) /HPF Urine Bacteria Many H (0-FEW/HPF) /HPF Urine HCG, Qual Negative 12/11/20 12/11/20 12/11/20 Range/Units 03:50 03:50 03:50 WBC (5.0-10.0) 10^3/uL RBC (4.2-5.4) 10^6/uL Hgb (12.0-16.0) g/dL Hct (37.0-47.0) % MCV (80-100) fL MCH (27.0-34.0) pg MCHC (33.0-35.0) g/dL Plt Count (150-450) 10^3/uL Neut % (Auto) (42.2-75.2) % Lymph % (Auto) (20.5-50.1) % Barron % (Auto) (2-8) % Eos % (Auto) (1.0-3.0) % Baso % (Auto) (0.0-1.0) % PT 10.4 (9.0-12.0) SEC INR 1.0 (0.9-1.2) Sodium 137 (136-145) mmol/L Potassium 3.6 (3.5-5.1) mmol/L Chloride 102 (98-107) mmol/L Carbon Dioxide 21 (21-32) mmol/L Anion Gap 17.6 H (7-13) mEq/L BUN 12 (7-18) mg/dL Creatinine 1.00 (0.55-1.02) mg/dL Est Cr Clr Drug Dosing 72.81 mL/min Estimated GFR (MDRD) > 60 BUN/Creatinine Ratio 12.0 (No establ ref range) Glucose 127 H (70-99) mg/dL Calcium 8.6 (8.5-10.1) mg/dL Total Bilirubin 1.0 (0.2-1.0) mg/dL AST 23 (15-37) U/L ALT 55 (14-59) U/L Alkaline Phosphatase 73 (46-116) U/L Total Protein 7.5 (6.4-8.2) g/dL Albumin 3.5 (3.4-5.0) g/dL Globulin 4.0 Albumin/Globulin Ratio 0.9 Amylase 56 (25-115) U/L Lipase 63 L (73-393) U/L Urine Color (YELLOW) Urine Appearance (CLEAR) Urine pH (5.0-9.0) Ur Specific [place] (1.005-1.030) Urine Protein (NEGATIVE) Urine Glucose (UA) (NEGATIVE) Urine Ketones (NEGATIVE) Urine Occult Blood (NEGATIVE) Urine Nitrite (NEGATIVE) Urine Bilirubin (NEGATIVE) Urine Urobilinogen (0.2-1.0) mg/dL Ur Leukocyte Esterase (NEGATIVE) Urine RBC /HPF Urine WBC (0-5/HPF) /HPF Ur Epithelial Cells (NOT SEEN) /HPF Urine Bacteria (0-FEW/HPF) /HPF Urine HCG, Qual Meds: Medications Discontinued Medications Generic Name Dose Route Start Last Admin Trade Name Freq PRN Reason Stop Dose Admin Lactated Ringer's 1,000 mls @ 999 mls/hr 12/11/20 03:24 12/11/20 03:53 Ringers, Lactated IV 12/11/20 04:24 999 mls/hr .BOLUS ONE Administration Iopamidol 100 ml 12/11/20 07:15 12/11/20 07:29 Iopamidol 612 Mg/Ml 100 Ml Bottle IVPUSH 12/11/20 07:16 75 ml ONETIME ONE Administration Metoclopramide HCl 10 mg 12/11/20 05:50 12/11/20 06:13 Metoclopramide 10 Mg/2 Ml Sdv IVPUSH 12/11/20 05:51 10 mg ONETIME ONE Administration Metoclopramide HCl 10 mg 12/11/20 08:01 12/11/20 08:08 Metoclopramide 10 Mg/2 Ml Sdv IVPUSH 12/11/20 08:02 10 mg ONETIME ONE Administration Ondansetron HCl 4 mg 12/11/20 03:25 12/11/20 03:51 Ondansetron 4 Mg/2 Ml Sdv IV 12/11/20 03:26 4 mg ONETIME ONE Administration Ondansetron HCl Confirm 12/11/20 04:45 12/11/20 07:15 Ondansetron 4 Mg Tab.Dis Administered 12/11/20 04:46 Not Given Dose 8 mg .ROUTE .STK-MED ONE Ondansetron HCl 4 mg 12/11/20 04:57 12/11/20 05:09 Ondansetron 4 Mg/2 Ml Sdv IV 12/11/20 04:58 4 mg ONETIME ONE Administration Ondansetron HCl 4 mg 12/11/20 03:05 Ondansetron 4 Mg Tab.Dis PO 12/11/20 03:06 .STK-MED ONE Promethazine HCl 25 mg 12/11/20 05:42 12/11/20 05:55 Promethazine 25 Mg/Ml Sdv IM 12/11/20 05:43 Not Given ONETIME ONE - Radiology Interpretation Free Text/Narrative:: Head CT wo contrast: PROCEDURE INFORMATION: Exam: CT Head Without Contrast Exam date and time: 12/11/2020 3:46 AM Age: 35 years old Clinical indication: Other: Hit head yesterday; Additional info: Hit head, vomiting TECHNIQUE: Imaging protocol: Computed tomography of the head without contrast. Radiation optimization: All CT scans at this facility use at least one of these dose optimization techniques: automated exposure control; mA and/or kV adjustment per patient size (includes targeted exams where dose is matched to clinical indication); or iterative reconstruction. COMPARISON: No relevant prior studies available. FINDINGS: Brain: Normal. No hemorrhage. Unremarkable white matter. No mass effect. Cerebral ventricles: No ventriculomegaly. Bones/joints: Unremarkable. No acute fracture. Paranasal sinuses: Visualized sinuses are unremarkable. No fluid levels. Mastoid air cells: Visualized mastoid air cells are well aerated. Soft tissues: Unremarkable. IMPRESSION: No acute intracranial abnormality. Thank you for allowing us to participate in the care of your patient. Dictated and Authenticated by: Loyd Crane MD 12/11/2020 4:10 AM Central Time ([place] & [place]) See rad report (Skyla Reyes) - Re-Assessments/Exams Free Text/Narrative Re-Assessment/Exam: 12/11/20 08:01 Patient care was taken over at shift change. The patient reports continued abdominal pain/cramping. A CT was ordered of her abdomen and pelvis demonstrating enteritis. (Tanner Reeder) 12/11/20 06:20 Patient continues to have nausea. Patient is up to the restroom and vomited several times while in the restroom. Complaining of abdominal cramping as well. (Skyla Reyes) Departure - Departure Time of Disposition: 08:03 <Tanner Reeder - Last Filed: 12/11/20 08:01> - Departure Condition: Fair - Discharge Information *PRESCRIPTION DRUG MONITORING PROGRAM REVIEWED*: No *COPY OF PRESCRIPTION DRUG MONITORING REPORT IN PATIENT CHLOE: No <Skyla Reyes - Last Filed: 12/16/20 10:18> - Departure Disposition: Home, Self-Care 01 Clinical Impression: Viral gastroenteritis Concussion Qualifiers: Encounter type: initial encounter Loss of consciousness presence/duration: without LOC Qualified Code(s): S06.0X0A - Concussion without loss of consciousness, initial encounter UTI (urinary tract infection) Qualifiers: Urinary tract infection type: acute cystitis Hematuria presence: with hematuria Qualified Code(s): N30.01 - Acute cystitis with hematuria - Discharge Information Instructions: Concussion, Adult, [id number], Viral Gastroenteritis, Adult, [id number], Post-Concussion Syndrome, [id number], Urinary Tract Infection, Adult, [id number]-[id number], Head Injury, Adult, [id number] Referrals: PCP,Not In Area [Primary Care Provider] - Forms: ED Department Discharge Additional Instructions: Rx: Ondansetron every 6-8 hours as needed for nausea and vomiting Small amounts of fluids frequently, water, Powerade or Gatorade, Pedialyte When nausea is gone start with bland foods such as dry Cheerios, toast, rice Follow-up with your primary care provider if no improvement Return to the ER with any worsening of symptoms Sepsis Event Note (ED) - Evaluation Sepsis Screening Result: No Definite Risk <Skyla Reyes - Last Filed: 12/16/20 10:18>
--- NOTE | 2020-12-11 04:10 | CT ---
PROCEDURE INFORMATION: Exam: CT Head Without Contrast Exam date and time: 12/11/2020 3:46 AM Age: 35 years old Clinical indication: Other: Hit head yesterday; Additional info: Hit head, vomiting TECHNIQUE: Imaging protocol: Computed tomography of the head without contrast. Radiation optimization: All CT scans at this facility use at least one of these dose optimization techniques: automated exposure control; mA and/or kV adjustment per patient size (includes targeted exams where dose is matched to clinical indication); or iterative reconstruction. COMPARISON: No relevant prior studies available. FINDINGS: Brain: Normal. No hemorrhage. Unremarkable white matter. No mass effect. Cerebral ventricles: No ventriculomegaly. Bones/joints: Unremarkable. No acute fracture. Paranasal sinuses: Visualized sinuses are unremarkable. No fluid levels. Mastoid air cells: Visualized mastoid air cells are well aerated. Soft tissues: Unremarkable. IMPRESSION: No acute intracranial abnormality.
[2020-12-11 04:18] LABS: ANION GAP 17.6 mEq/L (7-13); CHLORIDE,CL 102 mmol/L (98-107); SODIUM,NA 137 mmol/L (136-145)
[2020-12-11] MEDS ORDERED: Ondansetron 4 MG Tab.DIS ONE (04:45)
[2020-12-11] MEDS ORDERED: Promethazine 25 MG/ML SDV IM ONE (05:42)
[2020-12-11] MEDS: Metoclopramide 10 MG/2 ML SDV IVPUSH ONE ×2 (05:52→06:13)
[2020-12-11] MEDS ORDERED: Iopamidol 612 MG/ML 100 ML Bottle IVPUSH ONE (07:15)
--- NOTE | 2020-12-11 07:47 | CT ---
PROCEDURE INFORMATION: Exam: CT Abdomen And Pelvis With Contrast Exam date and time: 12/11/2020 7:23 AM Age: 35 years old Clinical indication: Abdominal pain; Generalized; Additional info: Diffuse abdominal pain (wbc 15.9) TECHNIQUE: Imaging protocol: Computed tomography of the abdomen and pelvis with contrast. Radiation optimization: All CT scans at this facility use at least one of these dose optimization techniques: automated exposure control; mA and/or kV adjustment per patient size (includes targeted exams where dose is matched to clinical indication); or iterative reconstruction. Contrast material: ISOVUE 300; Contrast volume: 75 ml; Contrast route: INTRAVENOUS (IV); COMPARISON: CT Abdomen Pelvis w Cont 03/16/2020 3:12 AM FINDINGS: Lungs: Mild bilateral dependent atelectasis. Liver: There is fatty change involving the liver parenchyma. Gallbladder and bile ducts: Prior cholecystectomy. No biliary ductal dilatation allowing for that. Pancreas: No pancreatic mass. No peripancreatic inflammation. No pancreatic ductal dilation. Spleen: The spleen is homogeneous and is not enlarged. Adrenal glands: No adrenal mass. Kidneys and ureters: No hydronephrosis, nephrolithiasis, or renal mass. Stomach and bowel: No bowel obstruction, colitis or diverticulitis. There is fluid in multiple loops of small bowel as well as in the colon which could be due to an enteritis in the correct clinical setting. Appendix: No evidence of appendicitis. Intraperitoneal space: No ascites or pneumoperitoneum. Vasculature: The abdominal aorta and iliofemoral arteries are normal. The mesenteric arteries are normal. The mesenteric, portal, and hepatic veins are normal. Lymph nodes: No pathologically enlarged lymph nodes. Urinary bladder: No urinary bladder calculus or wall thickening. Reproductive: There is an intrauterine device present. Bones/joints: No acute osseous abnormality. Soft tissues: Tiny umbilical hernia containing fat. IMPRESSION: 1. Fatty liver. 2. Possible enteritis.
[2020-12-11] MEDS ORDERED: Metoclopramide 10 MG/2 ML SDV IVPUSH ONE (08:01)
== END 2020-12-11 08:10 | disposition home or self-care (01) ==
LOC: DL.ED 03:04
DX: S06.0X0A Concussion without loss of consciousness, initial encounter (principal); N30.01 Acute cystitis with hematuria; A08.4 Viral intestinal infection, unspecified; E66.9 Obesity, unspecified; Z88.0 Allergy status to penicillin; Z88.5 Allergy status to narcotic agent; Z68.31 Body mass index [BMI] 31.0-31.9, adult; W22.8XXA Striking against or struck by other objects, initial encounter
CPT/HCPCS: 36415; 70450; 74177; 80053; 81001; 81025; 82150; 83690; 85025; 85610; 87086; 87088; 87186; 96374; 96375; 96376; 99284; 99284-25; A9270-GY; J2405; J2765; J7120; Q9967